=== PATIENT | female | born 1940 | race Caucasian/White ===

== ENCOUNTER 2019-12-13 20:45 | Emergency (ER) | payer MEDICARE, MEDICAID ==
[~2019-12-13] VITALS: Ht 170.2 cm; Wt 127.3 kg
[~2019-12-13 20:45] MED LIST: ?BP MED; ALBU8.5H2 IH; CHOL400T43 PO; FURO20TA4 PO; GABA-488 PO; GING250C2 PO; HYDR-3063 PO; HYDR-3720 PO; INSA70301U SC; INSU100V6 SQ; INSULIN PEN; LISI10TA2 PO; MAGN400C PO; METF-380 PO; MTF500T PO; NAPR-243 PO; NF-PREG50C PO; NITR0.4T42 SL; PRAV10TA PO; TRAM-21 PO; [UNRECOGNIZED DRUG - REMARK]; [UNRECOGNIZED DRUG - REMARK]
[2019-12-13] MEDS ORDERED: morphine INJ 10 MG/ML 1ML (SYR OR VIAL) IVP STA ×2 (21:19→22:47)
--- NOTE | 2019-12-13 21:24 | ED Fall/Injury ---
General Chief Complaint: Trauma-Non Activation Stated Complaint: FALL Nursing Triage Note: Ems state, "her L knee popped when we moved her." Pt reports discomfort to L knee. L lower extremity noted to be shortened et externally rotated. Denies L hip pain. Pt displays ability to move L lower extremity. Dorsalis pedis pulse palpable. Approx x2 1cm ST noted to R wrist. Bruising noted to R eye et R forehead. Source: patient, EMS Exam Limitations: no limitations History of Present Illness Date Seen by Provider: Dec 13, 2019 Time Seen by Provider: 21:05 Initial Comments Patient presents to the ER by EMS from home with chief complaint that she was in a deep sleep and rolled out of her bed landing on her left knee and the right side of her face. She denies laying there for very long and said it happened about 15 or 20 minutes prior to arrival in the ER. She rates her pain as a 10 out of 10 in her left knee and says the fentanyl given by EMS did not help at all. She is on Eliquis. No nausea vomiting double vision or weakness. Last tetanus vaccination was 7 years ago. Location Injury Occurred: Home Allergies and Home Medications Allergies Coded Allergies: No Known Drug Allergies (Unverified , 12/13/19) Patient Home Medication List Home Medication List Reviewed: Yes Review of Systems Review of Systems Constitutional: No chills, No fever, No malaise Eyes: Denies Blindness, Denies Blurred Vision Ears, Nose, Mouth, Throat: denies ear pain, denies ear discharge Respiratory: No cough, No short of breath Cardiovascular: No chest pain, No Hx of Intervention Gastrointestinal: No abdominal pain, No nausea, No vomiting Genitourinary: No discharge, No dysuria Musculoskeletal: see HPI; No back pain; joint pain Skin: No pruritus, No rash Psychiatric/Neurological: Denies Anxiety, Denies Depressed; Headache All Other Systems Reviewed Negative Unless Noted: Yes Past Kdfdtyh-Hzufhn-Ooekpg Hx Patient Social History Alcohol Use: Denies Use Recreational Drug Use: No Smoking Status: Never a Smoker 2nd Hand Smoke Exposure: No Recent Foreign Travel: No Contact w/Someone Who Travel: No Recent Infectious Disease Expo: No Recent Hopitalizations: No Seasonal Allergies Seasonal Allergies: No Past Medical History Surgeries: Yes Cardiac, Coronary Stent, Orthopedic Respiratory: No Cardiac: Yes Hypertension Neurological: No Genitourinary: No Gastrointestinal: No Musculoskeletal: No Endocrine: Yes Diabetes, Insulin dep Are Your Blood Sugars Over 250: No HEENT: No Cancer: No Psychosocial: No Integumentary: No Physical Exam Vital Signs Vital Signs - First Documented 12/13/19 20:47 Temp 36.8 Pulse 84 Resp 18 B/P (MAP) 110/61 (77) Pulse Ox 96 O2 Delivery Room Air Capillary Refill : Less Than 3 Seconds Height, Weight, BMI Height: '" Weight: lbs. oz. kg; 43.00 BMI Method: General Appearance: WD/WN, mild distress HEENT: PERRL/EOMI, pharynx normal Neck: non-tender, full range of motion, supple, normal inspection Cardiovascular: normal peripheral pulses, regular rate, rhythm, no edema Respiratory: chest non-tender, lungs clear, normal breath sounds, no respiratory distress, no accessory muscle use Gastrointestinal: normal bowel sounds, non tender, soft Back: normal inspection, no vertebral tenderness Extremities: normal capillary refill, swelling (left thigh), other (tenderness over anterior left knee, left shoulder) Neurologic/Psychiatric: no motor/sensory deficits, alert, normal mood/affect, oriented x 3 Skin: normal color, warm/dry, other (minor abrasions over her left knee and femur and hematoma and abrasions over right forehead. Skin tears right forearm.) Lela Coma Score Best Eye Response: (4) Open Spontaneously Best Verbal Response: (5) Oriented Best Motor Response: (6) Obeys Commands Lela Total: 15 Progress/Results/Core Measures Results/Orders Lab Results Laboratory Tests Test 12/13/19 21:40 12/13/19 21:50 Range/Units White Blood Count 7.0 4.3-11.0 10^3/uL Red Blood Count 3.92 L 4.35-5.85 10^6/uL Hemoglobin 11.6 11.5-16.0 G/DL Hematocrit 36 35-52 % Mean Corpuscular Volume 91 80-99 FL Mean Corpuscular Hemoglobin 30 25-34 PG Mean Corpuscular Hemoglobin Concent 33 32-36 G/DL Red Cell Distribution Width 14.9 H 10.0-14.5 % Platelet Count 184 130-400 10^3/uL Mean Platelet Volume 10.0 7.4-10.4 FL Neutrophils (%) (Auto) 69 42-75 % Lymphocytes (%) (Auto) 21 12-44 % Monocytes (%) (Auto) 7 0-12 % Eosinophils (%) (Auto) 2 0-10 % Basophils (%) (Auto) 0 0-10 % Neutrophils # (Auto) 4.8 1.8-7.8 X 10^3 Lymphocytes # (Auto) 1.5 1.0-4.0 X 10^3 Monocytes # (Auto) 0.5 0.0-1.0 X 10^3 Eosinophils # (Auto) 0.2 0.0-0.3 10^3/uL Basophils # (Auto) 0.0 0.0-0.1 10^3/uL Sodium Level 138 135-145 MMOL/L Potassium Level 5.2 H 3.6-5.0 MMOL/L Chloride Level 103 98-107 MMOL/L Carbon Dioxide Level 23 21-32 MMOL/L Anion Gap 12 5-14 MMOL/L Blood Urea Nitrogen 25 H 7-18 MG/DL Creatinine 1.47 H 0.60-1.30 MG/DL Estimat Glomerular Filtration Rate 34 BUN/Creatinine Ratio 17 Glucose Level 338 H 70-105 MG/DL Calcium Level 8.5 8.5-10.1 MG/DL Corrected Calcium 9.1 8.5-10.1 MG/DL Total Bilirubin 0.2 0.1-1.0 MG/DL Aspartate Amino Transf (AST/SGOT) 23 5-34 U/L Alanine Aminotransferase (ALT/SGPT) 22 0-55 U/L Alkaline Phosphatase 139 H 40-136 U/L Total Protein 6.2 L 6.4-8.2 GM/DL Albumin 3.3 3.2-4.5 GM/DL Urine Color YELLOW Urine Clarity SL CLOUDY Urine pH 7.0 5-9 Urine Specific [place] 1.015 L 1.016-1.022 Urine Protein NEGATIVE NEGATIVE Urine Glucose (UA) TRACE H NEGATIVE Urine Ketones NEGATIVE NEGATIVE Urine Nitrite POSITIVE H NEGATIVE Urine Bilirubin NEGATIVE NEGATIVE Urine Urobilinogen 0.2 < = 1.0 MG/DL Urine Leukocyte Esterase 1+ H NEGATIVE Urine RBC (Auto) NEGATIVE NEGATIVE Urine RBC NONE /HPF Urine WBC 5-10 H /HPF Urine Squamous Epithelial Cells RARE /HPF Urine Crystals NONE /LPF Urine Bacteria LARGE H /HPF Urine Casts NONE /LPF Urine Mucus NEGATIVE /LPF Urine Culture Indicated YES My Orders Orders - INDIO BLANCAS Ct Head/Cervical Spine Wo (12/13/19 21:19) Shoulder, Left, 3 Views (12/13/19 21:19) Hip, Left, 2 Views (12/13/19 21:19) Morphine Injection (Morphine Injection (12/13/19 21:19) Ondansetron Injection (Zofran Injectio (12/13/19 21:30) Cbc With Automated Diff (12/13/19 21:19) Comprehensive Metabolic Panel (12/13/19 21:19) Ua Culture If Indicated (12/13/19 21:19) Dipht,Pertuss(Acell),Tet Adult (Boostrix (12/13/19 21:30) Urine Culture (12/13/19 21:50) Chest 1 View, Ap/Pa Only (12/13/19 22:17) Femur, Left, 2 Views (12/13/19 22:17) Catheter(Urinary) Insert & Ass 03,15 (12/13/19 22:17) Ceftriaxone For Iv Use (Rocephin For I (12/13/19 22:30) Ed Iv/Invasive Line Start (12/13/19 22:24) Ns Iv 1000 Ml (Sodium Chloride 0.9%) (12/13/19 22:24) Knee, Left, 2 Views (Ap & Lat) (12/13/19 21:19) Tibia/Fibula, Left, 2 Views (12/13/19 22:36) Morphine Injection (Morphine Injection (12/13/19 22:47) Ketamine Syringe (Ed Only) (Ketamine Syr (12/13/19 23:00) Ct Extremity Lower Left Wo (12/13/19 23:16) Medications Given in ED Current Medications Medications Dose Ordered Sig/Soheila Route Start Time Stop Time Status Last Admin Dose Admin Ceftriaxone Sodium 1000 mg/ Sterile Water 10 ml @ 200 mls/hr ONCE ONCE IV 12/13/19 22:30 12/13/19 22:32 DC 12/13/19 23:00 200 MLS/HR Diphtheria/ Tetanus/Acell Pertussis 0.5 ml ONCE ONCE IM 12/13/19 21:30 12/13/19 21:31 DC 12/13/19 21:35 0.5 ML Ketamine HCl 25 mg ONCE ONCE IV 12/13/19 23:00 12/13/19 23:01 DC 12/13/19 23:02 25 MG Ondansetron HCl 4 mg ONCE ONCE IVP 12/13/19 21:30 12/13/19 21:31 DC 12/13/19 21:34 4 MG Vital Signs/I&O 12/13/19 20:47 Temp 36.8 Pulse 84 Resp 18 B/P (MAP) 110/61 (77) Pulse Ox 96 O2 Delivery Room Air Blood Pressure Mean: 77 Progress Progress Note #1: Time: 21:23 Progress Note Skin tears were cleaned and dressed. We'll get a scan of her head and C-spine as well as x-ray of her left shoulder, left hip, left knee. Morphine and Zofran for her pain. Progress Note #2: Time: 22:47 Progress Note Pain is marginally better however she was still like something else for pain so 25 mg ketamine and another 4 mg morphine were ordered. A liter fluids and Rocephin were ordered for UTI. Significant fracture, comminuted, closed of the left distal femur and proximal fibula seen on x-rays. Another tibia/fibula x-ray were ordered. Diagnostic Imaging Diagonstic Imaging: CT Plain Films/CT/US/NM/MRI: c-spine, head Comments No acute calvarial fracture. No midline shift, mass effect, intracranial hemorrhage or tumor seen. No acute fracture or traumatic malalignment of the C-spine. Reviewed: Reviewed by Me Diagonstic Imaging: Xray Plain Films/CT/US/NM/MRI: other (left shoulder) Comments No acute fracture Reviewed: Reviewed by Me Diagonstic Imaging: Xray Plain Films/CT/US/NM/MRI: hip (left) Comments No acute osseous abnormality. Reviewed: Reviewed by Me Diagonstic Imaging: Xray Plain Films/CT/US/NM/MRI: knee (left) Comments Distal comminuted closed femur fracture involving articular surface. Reviewed: Reviewed by Me Diagonstic Imaging: Xray Plain Films/CT/US/NM/MRI: leg (left tib-fib) Comments No acute fracture left tibia/fibula Reviewed: Reviewed by Me Diagonstic Imaging: CT (no noncontrastncontrast) Plain Films/CT/US/NM/MRI: leg (left knee) Comments Comminuted distal femoral metaphyseal fracture with intra-articular extension into the intercondylar notch. Reviewed: Reviewed Night Yobanyk Study, Reviewed by Me Consults : Consulting Physician: ANIYA HALL MD Consults Notes Discussed the case with Dr. Hall and he does not feel comfortable surgically repairing this so he referred her to the traumatologist at [facility] who said that if we would get a CT of the knee he would be more than happy to take the patient on. Dr Crews. Departure Impression Primary Impression: Closed left femoral fracture Qualified Codes: S72.442A - Displaced fracture of lower epiphysis (separation) of left femur, initial encounter for closed fracture Additional Impressions: UTI (urinary tract infection) Qualified Codes: N30.01 - Acute cystitis with hematuria Fall from bed, initial encounter Disposition: XFER SHT-TRM HOSP Condition: Stable Transfer Transfer Reason: Exceeds level of care Time Spoke to Accepting Phy: 23:15 Transfer Progress Notes 2300: Discussed the case with [facility] triage and they will contact ER. 2315: Discussed the case with Dr. Ambriz in the ER and she accepts the patient. We did mention to Drs. Hall had already spoken to Dr. Crews who would be willing to take the patient. Transfer Facility: [facility] [place] [facility] Method of Transfer: EMS INDIO BLANCAS Dec 13, 2019 21:24
[2019-12-13] MEDS ORDERED: ONDANSETRON 4 MG/2 ML (SDV) Z0FRAN IVP ONE (21:30)
[2019-12-13] MEDS ORDERED: TETANUS,DIPTH,PERTUSS P/F (BOOSTRIX) 0.5 ML VIAL IM ONE (21:30)
[2019-12-13 21:47] LABS: BASOPHILS % (AUTO) 0 % (0-10); EOSINOPHILS # (AUTO) 0.2 10^3/uL (0.0-0.3); EOSINOPHILS % (AUTO) 2 % (0-10); HEMATOCRIT 36 % (35-52); HEMOGLOBIN 11.6 G/DL (11.5-16.0); LYMPHOCYTES # (AUTO) 1.5 X 10^3 (1.0-4.0); LYMPHOCYTES % (AUTO) 21 % (12-44); MEAN CORPUSCULAR HEMOGLOBIN 30 PG (25-34); MEAN CORPUSCULAR HGB CONC 33 G/DL (32-36); MEAN CORPUSCULAR VOLUME 91 FL (80-99); MONOCYTES # (AUTO) 0.5 X 10^3 (0.0-1.0); MONOCYTES % (AUTO) 7 % (0-12); NEUTROPHILS # (AUTO) 4.8 X 10^3 (1.8-7.8); NEUTROPHILS % (AUTO) 69 % (42-75); PLATELET COUNT 184 10^3/uL (130-400); RED CELL DISTRIBUTION WIDTH 14.9 % (10.0-14.5)
[2019-12-13 21:58] LABS: ALBUMIN 3.3 GM/DL (3.2-4.5); POTASSIUM 5.2 MMOL/L (3.6-5.0)
[2019-12-13 21:59] LABS: BILIRUBIN,URINE NEGATIVE (NEGATIVE); COLOR,URINE YELLOW; GLUCOSE, URINE (UA) TRACE (NEGATIVE); KETONES,URINE NEGATIVE (NEGATIVE); LEUKOCYTE ESTERASE ,URINE 1+ (NEGATIVE); NITRITE,URINE POSITIVE (NEGATIVE); PROTEIN,URINE NEGATIVE (NEGATIVE)
[2019-12-13 21:59] LABS: CALCIUM 8.5 MG/DL (8.5-10.1)
[2019-12-13 22:00] LABS: TOTAL PROTEIN 6.2 GM/DL (6.4-8.2)
[2019-12-13 22:02] LABS: BILIRUBIN,TOTAL 0.2 MG/DL (0.1-1.0)
[2019-12-13 22:03] LABS: CLARITY,URINE SL CLOUDY
[2019-12-13 22:04] LABS: CREATININE SERUM 1.47 MG/DL (0.60-1.30)
[2019-12-13 22:06] LABS: BACTERIA,URINE LARGE /HPF; SQUAMOUS EPITHELIAL CELL,UR RARE /HPF
[2019-12-13] MEDS ORDERED: NS IV 1000 ML 1,000 ML IV SCH (22:24)
[2019-12-13] MEDS ORDERED: cefTRIAXone FOR IV USE 1,000 MG in WATER (STERILE) FOR INJECTION 10 ML IV ONE (22:30)
[2019-12-13] MEDS ORDERED: KETAMINE/NaCl 50 MG/5 ML SYRINGE (ED ONLY) IV ONE (23:00)
--- NOTE | 2019-12-13 23:50 | NUR ---
Pt report called to GERRY Oconnell at [facility] for pt ER-ER transfer.
--- NOTE | 2019-12-13 23:53 | NUR ---
Contacted [facility] [employer] [facility] for request EMS pt transfer to [facility]. Captain accepted transfer. [facility] dispatch contacted.
--- NOTE | 2019-12-14 00:35 | NUR ---
350ml urinary output via patent rosa catheter.
[2019-12-14] MEDS ORDERED: fentaNYL INJECTION 100 MCG/2 ML AMP ONE (00:44)
--- NOTE | 2019-12-14 00:45 | NUR ---
Per provider veral order, 75mcg fentanyl adm prior to EMS departure for transfer to [facility].
[2019-12-14 00:50] VITALS: BP 158/116
[2019-12-14] MEDS ORDERED: fentaNYL INJECTION 100 MCG/2 ML AMP IVP ONE (01:15)
--- NOTE | 2019-12-14 04:55 | Diagnostic Imaging Report ---
EXAMINATION: Chest 1 view HISTORY: Fell out of bed. Femur fracture. COMPARISON: 06/02/2019. FINDINGS: The lung volumes are normal. Prominent interstitial markings are seen in the right upper lobe. No large pleural effusion or pneumothorax is seen. The cardiomediastinal silhouette is prominent. No acute osseous abnormality is seen. IMPRESSION: 1. Prominent interstitial markings in the right upper lobe, which may represent asymmetric pulmonary edema versus infection or inflammation. 2. Cardiomegaly. Dictated by: Dictated on workstation # [id number]
--- NOTE | 2019-12-14 04:55 | Diagnostic Imaging Report ---
CLINICAL HISTORY: Fell out of bed. Left leg pain. COMPARISON: None. TECHNIQUE: 2 views of the left hip. FINDINGS: There is no acute fracture or dislocation of the left hip. Alignment is anatomic. Degenerative changes are seen in the left hip with joint space narrowing and marginal osteophyte formation. No evidence of joint effusion in the left hip. The surrounding soft tissues are unremarkable. The included pelvis demonstrates no acute fracture or dislocation. IMPRESSION: 1. No acute fracture or dislocation in the left hip. Dictated by: Dictated on workstation # [id number]
--- NOTE | 2019-12-14 04:56 | Diagnostic Imaging Report ---
CLINICAL HISTORY: Fell out of bed. Left shoulder pain. COMPARISON: None. TECHNIQUE: 3 views of the left shoulder. FINDINGS: There is no acute fracture or dislocation of the left shoulder. Alignment is anatomic. Degenerative changes are seen in the left glenohumeral and acromioclavicular joint. No large joint effusion is present. The surrounding soft tissues are unremarkable. IMPRESSION: 1. No acute fracture or dislocation of the left shoulder. Dictated by: Dictated on workstation # [id number]
--- NOTE | 2019-12-14 04:57 | Diagnostic Imaging Report ---
CLINICAL HISTORY: Fell out of bed. Left knee pain. COMPARISON: None. TECHNIQUE: 4 views of the left femur. FINDINGS: A comminuted fracture is seen involving the distal left femur involving the metaphysis and epiphysis with extension into the intra-articular surface of the left knee joint. A component of impaction is also likely with approximately 1.5 cm of overriding. The proximal and mid femur demonstrate a normal appearance without fracture. IMPRESSION: 1. Comminuted and impacted fracture involving the distal left femur with intra-articular extension. Dictated by: Dictated on workstation # [id number]
--- NOTE | 2019-12-14 04:58 | Diagnostic Imaging Report ---
CLINICAL HISTORY: Fall. Left knee pain. COMPARISON: None. TECHNIQUE: 2 views of the left knee. FINDINGS: A comminuted fracture involving the distal left femur is visualized extending from the metaphysis into the intra-articular surfaces of the left knee joint. 1.5 cm of overriding is noted. Advanced degenerative changes are seen in the left knee joint with marginal osteophytes and joint space narrowing. Small lipohemarthrosis is noted in the left knee joint. No displaced fractures are seen involving the left proximal tibia or fibula. Surrounding soft tissue edema is noted. IMPRESSION: 1. Comminuted and impacted fracture involving the distal left femur with intra-articular extension. 2. No displaced fractures are seen involving the proximal left tibia and fibula. Dictated by: Dictated on workstation # [id number]
--- NOTE | 2019-12-14 05:55 | Diagnostic Imaging Report ---
PROCEDURE: CT head and CT cervical spine without contrast. TECHNIQUE: Multiple contiguous axial images were obtained through the brain and cervical spine without the use of intravenous contrast. Sagittal and coronal reformations through the cervical spine were then performed. Auto Exposure Controls were utilized during the CT exam to meet ALARA standards for radiation dose reduction. INDICATION: Fell out of bed. Scalp contusion. Left knee pain. COMPARISON: None. FINDINGS: CT head: No large acute territorial ischemia, mass, or hemorrhage. No midline shift or mass effect. The ventricles, cortical sulci, and basilar cisterns are patent and unremarkable. The calvarium is intact. Edema is seen overlying the right orbit. The visualized paranasal sinuses are clear. CT cervical spine: No acute fracture or dislocation is seen in the cervical spine. There is straightening of the cervical spine. Grade 1 anterolisthesis of C3 on C4 is noted. No focal osseous lesions. Vertebral body heights are well-maintained. The craniocervical junction is well-maintained. [id number] degenerative changes are seen in the cervical spine with disc osteophyte complexes and uncovertebral arthropathy. Soft tissues of the neck are unremarkable. IMPRESSION: 1. No hemorrhage or focal intra-axial mass. No CT evidence of large acute territorial ischemia. 2. No acute fracture or dislocation in the cervical spine. Agree with overnight report. Dictated by: Dictated on workstation # [id number]
--- NOTE | 2019-12-14 05:58 | Diagnostic Imaging Report ---
CLINICAL HISTORY: Fall. Left knee pain. COMPARISON: Left knee radiographs performed earlier the same day. TECHNIQUE: 4 views of the left tibia and fibula. FINDINGS: There is no acute fracture or dislocation of the left tibia and fibula. Comminuted fracture of the distal left femur is again noted. Advanced degenerative changes are seen in the left knee. IMPRESSION: 1. No acute fracture or dislocation in the left tibia and fibula. 2. Redemonstration of the comminuted fracture involving the distal left femur. Dictated by: Dictated on workstation # [id number]
--- NOTE | 2019-12-14 06:33 | Diagnostic Imaging Report ---
PROCEDURE: CT left lower extremity without contrast. TECHNIQUE: Multiple contiguous axial images were obtained through the left lower extremity without the use of intravenous contrast. Sagittal and coronal reformations were then performed. Auto Exposure Controls were utilized during the CT exam to meet ALARA standards for radiation dose reduction. INDICATION: Fell out of bed. Leg fracture. COMPARISON: Left femur radiographs performed earlier the same date. FINDINGS: A comminuted and impacted fracture seen involving the distal left femoral metaphysis with extension of the fracture line into the left knee joint via the intracondylar notch. Multiple prominent butterfly fragments are visualized adjacent to the fracture. Possible impaction fracture seen involving the medial tibial plateau although this may represent advanced degenerative changes. No fracture seen involving the left fibula. A lipohemarthrosis is noted in the left knee joint. Moderate osteoarthritis is seen in the left knee. Edema is seen surrounding the left knee. The suprapatellar and infrapatellar tendons appear intact. IMPRESSION: 1. Comminuted and impacted fracture involving the distal left femoral metaphysis with intra-articular extension. Associated lipohemarthrosis is present. 2. Advanced degenerative changes in the left knee, greatest in the medial compartment. An area of depression is seen in the medial compartment of the left tibial plateau, which may be associated with the degenerative changes or represent impaction fracture. Agree with overnight report. Dictated by: Dictated on workstation # [id number]
== END 2019-12-14 00:50 | disposition short-term general hospital (02) ==
LOC: ER 20:47
DX: S72.412A Displaced unspecified condyle fracture of lower end of left femur, initial encounter for closed fracture (principal); S51.811A Laceration without foreign body of right forearm, initial encounter; S00.81XA Abrasion of other part of head, initial encounter; N39.0 Urinary tract infection, site not specified; R40.2410 Glasgow coma scale score 13-15, unspecified time; Z23 Encounter for immunization; Z95.5 Presence of coronary angioplasty implant and graft; W06.XXXA Fall from bed, initial encounter
CPT/HCPCS: 36415; 51702; 70450; 71045; 72125; 73030; 73502; 73552; 73560; 73590; 73700; 80053; 81000; 85025; 87077; 87088; 87186; 90715

== ENCOUNTER 2020-01-12 17:25 | Emergency (ER) | payer MEDICARE, MEDICAID ==
[~2020-01-12] VITALS: Ht 170.1 cm; Wt 103.4 kg
[2020-01-12] MEDS ORDERED: ATROPINE INJECTION 1 MG/10 ML SYR (ABBOTT) INJ ONE (17:27)
[2020-01-12] MEDS ORDERED: ATROPINE INJECTION 1 MG/1 ML SDV IJ STA (17:39)
--- NOTE | 2020-01-12 17:43 | ED Cardiac General ---
History of Present Illness General Stated Complaint: BRADYCARDIA Source: patient Exam Limitations: no limitations (INDIO WILLAMS) History of Present Illness Date Seen by Provider: Jan 12, 2020 Time Seen by Provider: 17:24 Initial Comments Patient presents to ER by EMS from [facility] [place] with chief complaint for the past couple days she's felt poorly, dizzy and staff noticed today she had a heart rate in the 40s. It got down to the 30s by the time EMS arrived. They initiated a liter fluids but she had good blood pressure 110-120 systolic. She does not have a history of bradycardia or dysrhythmia but she did have a stent placed a week ago by casting trucker at [place], [place]. She also just recently started Bactrim for a wound on her left lower extremity the same time she started having symptoms. She denies any nausea, chest pain. No shortness of air fever or chills. (INDIO WILLAMS) Allergies and Home Medications Allergies Coded Allergies: No Known Drug Allergies (Unverified , 12/13/19) Home Medications Albuterol 8.5 Gm Hfa.aer.ad, 1 PUFF IH RTQ4HR PRN for SHORTNESS OF BREATH, (Reported) 1 PUFFS Jinny Root 250 Mg Capsule, 250 MG PO DAILY, (Reported) Hydrocodone Bit/Acetaminophen 1 Each Tablet, 1-2 EACH PO q4-6 hours PRN for PAIN Prescribed by: SAYRA CONNOR MD on 08/18/14 0906 Insulin Glargine,Hum.rec.anlog 100 Unit/1 Ml Vial, 40 UNIT SQ BID, (Reported) Insuln Asp Prt/Insulin Aspart 10 Units/0.1 Ml Susp, 10 UNITS SC BID, (Reported) Magnesium Oxide 400 Mg Capsule, 800 MG PO DAILY, (Reported) Metformin Hcl 1,000 Mg Tablet, 1 EACH PO BID WITH MEALS, (Reported) Naproxen 500 Mg Tablet, 1 EACH PO BID, (Reported) Nitroglycerin 0.4 Mg Tab.subl, 0.4 MG SL UD PRN for CHEST PAIN, (Reported) Pregabalin 50 Mg Cap, 50 MG PO TID, (Reported) Vitamin D 400 Intlu Tab, 800 INTLU PO DAILY, (Reported) Patient Home Medication List Home Medication List Reviewed: Yes (INDIO WILLAMS) Review of Systems Review of Systems Constitutional: No chills, No fever; weakness EENTM: No Blurred Vision, No Double Vision, No Eye Tearing Respiratory: Denies Cough, Denies Orthopnea Cardiovascular: Denies Chest Pain, Denies Edema, Denies Irregular Heart Rate, Denies Lightheadedness (0 ) Genitourinary: Denies Burning, Denies Discharge Musculoskeletal: No back pain, No joint pain Skin: No change in color, No dryness Psychiatric/Neurological: Denies Anxiety, Denies Depressed Hematologic/Lymphatic: Denies Anemia, Denies Blood Clots (INDIO WILLAMS) Past Xuoyfhl-Unpbzk-Fhzqcz Hx Patient Social History Alcohol Use: Denies Use Recreational Drug Use: No Smoking Status: Never a Smoker 2nd Hand Smoke Exposure: No Recent Hopitalizations: No (INDIO WILLAMS) Seasonal Allergies Seasonal Allergies: No (INDIO WILLAMS) Past Medical History Surgeries: Yes Cardiac, Coronary Stent, Orthopedic Respiratory: No Cardiac: Yes Hypertension Neurological: No Genitourinary: No Gastrointestinal: No Musculoskeletal: No Endocrine: Yes Diabetes, Insulin dep HEENT: No Cancer: No Psychosocial: No Integumentary: No (INDIO WILLAMS) Physical Exam Vital Signs Vital Signs - First Documented 01/12/20 01/12/20 17:25 17:30 Temp 36.4 Pulse 38 Resp 10 B/P (MAP) 86/53 (64) Pulse Ox 100 O2 Delivery Room Air O2 Flow Rate 2.00 (CARLOS ENRIQUE MCDANIELS MD) Vital Signs Capillary Refill : (INDIO WILLAMS) Height, Weight, BMI Height: '" Weight: lbs. oz. kg; 43.00 BMI Method: General Appearance: No Apparent Distress, Obese HEENT: PERRL/EOMI, Pharynx Normal, Moist Mucous Membranes Neck: Full Range of Motion, Normal Inspection Respiratory: Lungs Clear, Normal Breath Sounds, No Accessory Muscle Use, No Respiratory Distress Cardiovascular: Regular Rate, Rhythm, Bradycardia Gastrointestinal: Normal Bowel Sounds, No Organomegaly Extremity: Normal Capillary Refill, Normal Inspection Neurologic/Psychiatric: Alert, Oriented x3 Skin: Normal Color, Warm/Dry (INDIO WILLAMS) Progress/Results/Core Measures Results/Orders Lab Results Laboratory Tests Test 01/12/20 17:35 01/12/20 20:18 01/12/20 21:52 Range/Units White Blood Count 8.5 4.3-11.0 10^3/uL Red Blood Count 3.03 L 3.80-5.11 10^6/uL Hemoglobin 9.5 L 11.5-16.0 g/dL Hematocrit 31 L 35-52 % Mean Corpuscular Volume 102 H 80-99 fL Mean Corpuscular Hemoglobin 31 25-34 pg Mean Corpuscular Hemoglobin Concent 31 L 32-36 g/dL Red Cell Distribution Width 19.7 H 10.0-14.5 % Platelet Count 241 130-400 10^3/uL Mean Platelet Volume 11.3 9.0-12.2 fL Immature Granulocyte % (Auto) 0 % Neutrophils (%) (Auto) 70 42-75 % Lymphocytes (%) (Auto) 20 12-44 % Monocytes (%) (Auto) 9 0-12 % Eosinophils (%) (Auto) 1 0-10 % Basophils (%) (Auto) 1 0-10 % Neutrophils # (Auto) 6.0 1.8-7.8 10^3/uL Lymphocytes # (Auto) 1.7 1.0-4.0 10^3/uL Monocytes # (Auto) 0.7 0.0-1.0 10^3/uL Eosinophils # (Auto) 0.1 0.0-0.3 10^3/uL Basophils # (Auto) 0.0 0.0-0.1 10^3/uL Immature Granulocyte # (Auto) 0.0 0.0-0.1 10^3/uL Prothrombin Time 19.1 H 12.2-14.7 SEC INR Comment 1.6 H 0.8-1.4 Activated Partial Thromboplast Time 31 24-35 SEC D-Dimer 3.56 H 0.00-0.49 UG/ML Sodium Level 131 L 134 L 135-145 MMOL/L Potassium Level 7.1 *H 6.8 *H 3.6-5.0 MMOL/L Chloride Level 104 105 98-107 MMOL/L Carbon Dioxide Level 18 L 18 L 21-32 MMOL/L Anion Gap 9 11 5-14 MMOL/L Blood Urea Nitrogen 87 H 86 H 7-18 MG/DL Creatinine 3.75 H 3.73 H 0.60-1.30 MG/DL Estimat Glomerular Filtration Rate 12 12 BUN/Creatinine Ratio 23 23 Glucose Level 129 H 77 70-105 MG/DL Calcium Level 8.4 L 8.6 8.5-10.1 MG/DL Corrected Calcium 9.0 8.5-10.1 MG/DL Magnesium Level 2.7 H 1.6-2.4 MG/DL Total Bilirubin 0.4 0.1-1.0 MG/DL Aspartate Amino Transf (AST/SGOT) 77 H 5-34 U/L Alanine Aminotransferase (ALT/SGPT) 109 H 0-55 U/L Alkaline Phosphatase 341 H 40-136 U/L Myoglobin 203.1 H 10.0-92.0 NG/ML Troponin I < 0.028 <0.028 NG/ML B-Type Natriuretic Peptide 2135.8 H <100.0 PG/ML Total Protein 5.9 L 6.4-8.2 GM/DL Albumin 3.3 3.2-4.5 GM/DL Free Thyroxine 0.77 0.70-1.48 NG/DL TSH Garvin Testing 4.99 H 0.35-4.94 UIU/ML Glucometer 87 70-110 MG/DL (CARLOS ENRIQUE MCDANIELS MD) My Orders Orders - CARLOS ENRIQUE MCDANIELS MD Thyroid Analyzer (01/12/20 18:08) Ns Iv 1000 Ml (Sodium Chloride 0.9%) (01/12/20 18:09) Albuterol Inhaler (Ventolin Hfa) (01/12/20 22:00) Sodium Polystyrene Sulfonate (Kayexalate (01/12/20 18:15) Calcium Gluconate 10% Inj (Calcium Glu (01/12/20 18:15) Insulin (Regular) Human (Novolin R (Per (01/12/20 18:15) D50w (Emergency) Syringe (Dextrose 50% 5 (01/12/20 18:15) Free T4 (Free Thyroxine) (01/12/20 17:35) Albuterol Inhaler (Ventolin Hfa) (01/12/20 18:57) Basic Metabolic Panel (01/12/20 19:56) Hydrocodone/Apap 5/325 Tablet (Lortab 5 (01/12/20 21:30) (CARLOS ENRIQUE MCDANIELS MD) Medications Given in ED Current Medications Medications Dose Ordered Sig/Soheila Route Start Time Stop Time Status Last Admin Dose Admin Acetaminophen/ Hydrocodone Bitart 1 tab ONCE ONCE PO 01/12/20 21:30 01/12/20 21:31 DC 01/12/20 21:33 1 TAB Aspirin 324 mg ONCE ONCE PO 01/12/20 17:45 01/12/20 17:46 DC 01/12/20 17:49 324 MG Calcium Gluconate 4.65 meq ONCE ONCE IV 01/12/20 18:15 01/12/20 18:16 DC 01/12/20 18:28 4.65 MEQ Dextrose 25 ml ONCE ONCE IV 01/12/20 18:15 01/12/20 18:16 DC 01/12/20 18:43 25 ML Insulin Human Regular 5 unit ONCE ONCE IV 01/12/20 18:15 01/12/20 18:16 DC 01/12/20 18:38 5 UNIT Sodium Polystyrene Sulfonate 15 gm ONCE ONCE PO 01/12/20 18:15 01/12/20 18:16 DC 01/12/20 18:52 15 GM (CARLOS ENRIQUE MCDANIELS MD) Vital Signs/I&O 01/12/20 01/12/20 01/12/20 17:25 17:30 22:24 Temp 36.4 36.4 Pulse 38 38 Resp 10 10 B/P (MAP) 86/53 (64) 97/66 (64) Pulse Ox 100 96 96 O2 Delivery Room Air Nasal Cannula Nasal Cannula O2 Flow Rate 2.00 2.00 (CARLOS ENRIQUE MCDANIELS MD) Progress Progress Note : Time: 18:09 Progress Note On patient's arrival she had good blood pressure. A liter was initiated by EMS of normal saline. We put her on heart panels and gave her half a milligram of atropine which brought her up from 34-45. She still running in the 40s. We will entertain the notion of glucagon and cardiac consultation and trend the patient over to the capable hands of Dr. Tran. (INDIO WILLAMS) Progress Note #1: Time: 18:55 Progress Note Care of this patient was assumed from Dr. Willams at shift change. Patient is found to be in acute kidney failure and hyperkalemic. She remains hemody namically stable at this time. She is alert and oriented 4, although her conversation is sometimes confused. Blood pressures are stable. Heart rate remains in the 35-45 BPM range. Because of her recent care at [facility], her casting trucker at [facility], and her renal failure, transferred to [facility] is most appropriate at this time. Her hyperkalemia is being treated with 2 L IV normal saline, inhaled albuterol, Kayexalate, calcium gluconate, insulin, and D50. She may receive Lasix as well pending discussion with the hospitalist at [facility]. I placed a call to the [facility] one call transfer line 18:50 and am awaiting callback. Progress Note #2: Time: 20:00 Progress Note Transfer has been accepted by Dr. Galicia at [facility]. He requested a repeat BMP prior to transfer. We are awaiting bed assignment. There was possible central venous congestion on the chest x-ray. If respiratory status dictates, we may give Lasix prior to transfer. Progress Note #3: Time: 21:45 Progress Note Patient remains stable and alert. She does occasionally drift off to sleep. She has required nasal cannula oxygen support when she sleeps. She has asked for pain medication for her left hip. She has some tenderness over the left buttock area. She reports she is accustomed to taking hydrocodone up to 15 mg. She was given hydrocodone 5 mg in the ER. Repeat potassium was 6.8. (CARLOS ENRIQUE MCDANIELS MD) Initial ECG Impression Date: Jan 12, 2020 Initial ECG Impression Time: 17:29 Initial ECG Rate: 34 Initial ECG Rhythm: Normal Sinus Initial ECG Intervals: Normal Initial ECG Impression: Sinus Bradycardia Comment Sinus bradycardia without clinically relevant ST changes. (INDIO WILLAMS) Diagnostic Imaging Diagonstic Imaging: Xray Plain Films/CT/US/NM/MRI: chest Reviewed: Reviewed by Me (INDIO WILLAMS) Diagonstic Imaging: Xray Plain Films/CT/US/NM/MRI: chest Comments NAME: [facility] REC#: [id number] PT STATUS: REG ER : 1940 PHYSICIAN: INDIO WILLAMS MD ADMIT DATE: 01/12/20/ER Signed Date of Exam:01/12/20 CHEST 1 VIEW, AP/PA ONLY HISTORY: Chest pain, bradycardia. COMPARISON: 12/13/2019. TECHNIQUE: Frontal view of the chest. FINDINGS: There is mild cardiomegaly with central vascular congestion. Mildly increased airspace opacity is seen at the medial right lung base. No significant pleural effusion or pneumothorax is seen. There is aortic atherosclerosis. IMPRESSION: 1. Mild cardiomegaly with mild central vascular congestion. 2. Mildly increased airspace opacity at the medial right lung base, may represent atelectasis or infiltrate. Dictated by: Dictated on workstation # [id number] Dict: 01/12/201805 Trans: 01/12/20 185 PJE [id number] Interpreted by: JACQUELINE GAONA MD Electronically signed by: JACQUELINE GAONA MD 01/12/201850 (CARLOS ENRIQUE MCDANIELS MD) Departure Impression Primary Impression: Sinus bradycardia by electrocardiogram Additional Impressions: Acute kidney failure Qualified Codes: N17.9 - Acute kidney failure, unspecified Acute hyperkalemia Disposition: XF T-TRM HOSP Condition: Stable Transfer Transfer Reason: Exceeds level of care Transfer Progress Notes Patient accepted by [facility] hospitalist. Transfer Time: 22:23 Transfer Facility: [facility] Method of Transfer: EMS (CARLOS ENRIQUE MCDANIELS MD) Departure-Patient Inst. Ref[place]: [facility] [place]) Primary Care Physician IVAN AGRAWAL APRN (Family) Primary Care Physician Copy Copies To 1: DONYA RAMOS TITUS J Jan 12, 2020 17:43 CARLOS ENRIQUE MCDANIELS MD Jan 12, 2020 19:00
--- NOTE | 2020-01-12 17:44 | NUR ---
0.5 mg Atropine given from crash cart.
[2020-01-12] MEDS ORDERED: ASPIRIN 81 MG CHEW (CHILDREN'S ASA) PO ONE (17:45)
[2020-01-12 17:47] LABS: BASOPHILS % (AUTO) 1 % (0-10); EOSINOPHILS # (AUTO) 0.1 10^3/uL (0.0-0.3); EOSINOPHILS % (AUTO) 1 % (0-10); HEMATOCRIT 31 % (35-52); HEMOGLOBIN 9.5 g/dL (11.5-16.0); LYMPHOCYTES # (AUTO) 1.7 10^3/uL (1.0-4.0); LYMPHOCYTES % (AUTO) 20 % (12-44); MEAN CORPUSCULAR HEMOGLOBIN 31 pg (25-34); MEAN CORPUSCULAR HGB CONC 31 g/dL (32-36); MEAN CORPUSCULAR VOLUME 102 fL (80-99); MEAN PLATELET VOLUME 11.3 fL (9.0-12.2); MONOCYTES # (AUTO) 0.7 10^3/uL (0.0-1.0); MONOCYTES % (AUTO) 9 % (0-12); NEUTROPHILS % (AUTO) 70 % (42-75); PLATELET COUNT 241 10^3/uL (130-400); WHITE BLOOD COUNT 8.5 10^3/uL (4.3-11.0)
[2020-01-12 17:57] LABS: ALBUMIN 3.3 GM/DL (3.2-4.5)
[2020-01-12 17:58] LABS: CALCIUM 8.4 MG/DL (8.5-10.1)
[2020-01-12 17:59] LABS: INR 1.6 (0.8-1.4); PROTHROMBIN TIME PATIENT 19.1 SEC (12.2-14.7)
[2020-01-12 18:00] LABS: TOTAL PROTEIN 5.9 GM/DL (6.4-8.2)
[2020-01-12 18:01] LABS: BILIRUBIN,TOTAL 0.4 MG/DL (0.1-1.0)
[2020-01-12 18:03] LABS: CREATININE SERUM 3.75 MG/DL (0.60-1.30)
[2020-01-12 18:06] LABS: MAGNESIUM 2.7 MG/DL (1.6-2.4)
[2020-01-12 18:08] LABS: POTASSIUM 7.1 MMOL/L (3.6-5.0)
[2020-01-12] MEDS ORDERED: NS IV 1000 ML 1,000 ML IV SCH (18:09)
--- NOTE | 2020-01-12 18:10 | Diagnostic Imaging Report ---
HISTORY: Chest pain, bradycardia. COMPARISON: 12/13/2019. TECHNIQUE: Frontal view of the chest. FINDINGS: There is mild cardiomegaly with central vascular congestion. Mildly increased airspace opacity is seen at the medial right lung base. No significant pleural effusion or pneumothorax is seen. There is aortic atherosclerosis. IMPRESSION: 1. Mild cardiomegaly with mild central vascular congestion. 2. Mildly increased airspace opacity at the medial right lung base, may represent atelectasis or infiltrate. Dictated by: Dictated on workstation # [id number]
[2020-01-12] MEDS ORDERED: DEXTROSE 50% 50 ML (IMS) SYR IV ONE (18:15)
[2020-01-12] MEDS ORDERED: SOD POLYSTERENE 15 GM/60 ML (KAYEXALATE) UNIT DOSE PO ONE (18:15)
[2020-01-12] MEDS ORDERED: CALCIUM GLUC. 10% 4.65 MEQ/10 ML VIAL IV ONE (18:15)
[2020-01-12] MEDS ORDERED: inSUlin (REGULAR) HUMAN 1 UNIT/0.01 ML (CHARGE PER UNIT) IV ONE (18:15)
[2020-01-12 18:47] LABS: TSH (THYROID ANALYZER) 4.99 UIU/ML (0.35-4.94)
--- NOTE | 2020-01-12 18:54 | NUR ---
Pt gives verbal consent to speak with Deirdre Cordero and Josselyn Yoon.
[2020-01-12] MEDS ORDERED: RT-ALBUTEROL INHALER HFA (VENTOLIN HFA) 18 GM IH ONE (18:57)
[2020-01-12 19:21] LABS: FREE T4 (FREE THYROXINE) 0.77 NG/DL (0.70-1.48)
--- NOTE | 2020-01-12 19:50 | NUR ---
Pt repositioned at this time.
[2020-01-12 20:37] LABS: CALCIUM 8.6 MG/DL (8.5-10.1)
[2020-01-12 20:38] LABS: POTASSIUM 6.8 MMOL/L (3.6-5.0)
[2020-01-12 20:41] LABS: CREATININE SERUM 3.73 MG/DL (0.60-1.30)
--- NOTE | 2020-01-12 20:43 | NUR ---
Spoke to Karsten junior [facility] regarding pt transfer.
[2020-01-12] MEDS ORDERED: HYDROcodone/APAP 5 MG/325 MG (LORTAB) TAB PO ONE (21:30)
[2020-01-12] MEDS ORDERED: RT-ALBUTEROL INHALER HFA (VENTOLIN HFA) 18 GM IH SCH (22:00)
[2020-01-12 22:24] VITALS: BP 97/66
== END 2020-01-12 22:20 | disposition short-term general hospital (02) ==
LOC: EDUNIT# 17:25 → ER 17:26
DX: R00.1 Bradycardia, unspecified (principal); N17.9 Acute kidney failure, unspecified; E87.5 Hyperkalemia; I10 Essential (primary) hypertension; E11.9 Type 2 diabetes mellitus without complications; Z95.5 Presence of coronary angioplasty implant and graft; Z79.4 Long term (current) use of insulin
CPT/HCPCS: 36415; 71045; 80048; 80053; 82962; 83735; 83874; 83880; 84439; 84443; 84484; 85025; 85379; 85610; 85730; 93005; 93041

== ENCOUNTER → 2022-05-06 | Outpatient (CLI) | payer MEDICARE, MEDICAID ==
--- NOTE | 2022-05-06 13:09 | Diagnostic Imaging Report ---
PROCEDURE: US left lower extremity venous. TECHNIQUE: Multiple Real-time grayscale images were obtained over the left lower extremity in various projections. Additional duplex Doppler and color Doppler images were also obtained. INDICATION: Left leg pain and swelling. FINDINGS: There is nonocclusive thrombus seen in the left common femoral vein and superficial femoral vein. There is some peripheral color flow suggesting this is nonocclusive. There is incomplete compressibility. IMPRESSION: Nonoccluding deep vein thrombosis from the common femoral vein through the distal superficial femoral vein of the left leg. CRITICAL FINDING Dictated by: Dictated on workstation # [id number]
== END ==
LOC: RAD 11:53
PROVIDERS: ATTEND Nurse Practitioner Family
DX: I82.412 Acute embolism and thrombosis of left femoral vein (principal)